=== PATIENT | female | born 1960 | race Caucasian/White ===

== ENCOUNTER 2025-01-02 15:11 | Emergency (ER) | payer MEDICARE, OTHER ==
[~2025-01-02] VITALS: Ht 165.1 cm; Wt 81.2 kg
[~2025-01-02 15:11] MED LIST: DEXILANT60 MG PO; LEVOTHYROXINE100 MC1 PO; LOSARTAN POTAS100 MG PO; METOPROLOL SUCC50 MG PO; VITAMIN B-121000 MCG PO; VITAMIN D35000 UNIT PO
[2025-01-02 15:31] VITALS: TEMP 97.6
[2025-01-02] MEDS: ACETAMINOPHEN 325 MG TAB PO ONE (16:26)
[2025-01-02] MEDS: TETANUS/DIPHTHERIA TOX ADULT 0.5 ML SYR IM ONE (16:30)
[2025-01-02] MEDS ORDERED: HYDROCODON-ACE1 EA11 PO ×2 (17:56→18:11)
[2025-01-02 18:17] VITALS: PULSE 66; RESP 18; O2SAT 99
== END 2025-01-02 18:21 | disposition home or self-care (01) ==
LOC: ER 16:01
DX: S42.214A Unspecified nondisplaced fracture of surgical neck of right humerus, initial encounter for closed fracture (principal); S62.101A Fracture of unspecified carpal bone, right wrist, initial encounter for closed fracture; S80.212A Abrasion, left knee, initial encounter; S80.211A Abrasion, right knee, initial encounter; W01.0XXA Fall on same level from slipping, tripping and stumbling without subsequent striking against object, initial encounter; Y93.01 Activity, walking, marching and hiking; Y92.89 Other specified places as the place of occurrence of the external cause
CPT/HCPCS: 70450; 72125; 90471; 90714; 99284

== ENCOUNTER → 2025-01-31 | Outpatient (RCR) | payer MEDICARE ==
[~2025-01-31] MED LIST changes: +HYDROCODON-ACE1 EA11 PO
== END ==
LOC: OT 01-28 12:47
PROVIDERS: ATTEND Specialist
DX: S42.291D Other displaced fracture of upper end of right humerus, subsequent encounter for fracture with routine healing (principal); M25.511 Pain in right shoulder; M25.611 Stiffness of right shoulder, not elsewhere classified; R53.1 Weakness

== ENCOUNTER 2025-03-01 10:56 | Outpatient (RCR) | payer MEDICARE | END 2025-03-02 | LOC: OT 10:56 | PROVIDERS: ATTEND Specialist | DX: S42.291D Other displaced fracture of upper end of right humerus, subsequent encounter for fracture with routine healing (principal); M25.511 Pain in right shoulder; M25.611 Stiffness of right shoulder, not elsewhere classified; R53.1 Weakness ==

== ENCOUNTER 2025-04-20 09:00 | Outpatient (RCR) | payer MEDICARE | END 2025-05-02 | LOC: OT 09:00 | PROVIDERS: ATTEND Specialist | DX: S42.231A 3-part fracture of surgical neck of right humerus, initial encounter for closed fracture (principal) ==